=== PATIENT | male | born 2000 | race Two or more races ===

== ENCOUNTER 2022-07-18 21:59 | Emergency (ER) | payer SELFPAY ==
[2022-07-18] MEDS ORDERED: Lidocaine 1% 10 ML MDV INJECT ONE (22:26)
[2022-07-18] MEDS ORDERED: Diphtheria,Pertussis(Acell),Tetanus Vaccine 0.5 ML Syringe IM ONE (22:26)
== END 2022-07-18 23:36 | disposition home or self-care (01) ==
LOC: JD.ED 21:59
DX: S21.212A Laceration without foreign body of left back wall of thorax without penetration into thoracic cavity, initial encounter (principal); Z23 Encounter for immunization; W26.0XXA Contact with knife, initial encounter
CPT/HCPCS: 12001; 90471; 90715; 99282; 99282-25; J3490

== ENCOUNTER 2022-08-02 14:03 | Emergency (ER) | payer SELFPAY | END 2022-08-02 14:17 | LOC: JD.ED 14:03 | DX: S21.212D Laceration without foreign body of left back wall of thorax without penetration into thoracic cavity, subsequent encounter (principal); Z48.02 Encounter for removal of sutures; W26.0XXD Contact with knife, subsequent encounter | CPT/HCPCS: 99281 ==